=== PATIENT | male | born 2000 | race Caucasian/White ===

== ENCOUNTER → 2022-11-11 | Outpatient (CLI) | payer OTHER ==
--- NOTE | 2022-11-11 11:43 | XR ---
EXAMINATION TYPE: XR shoulder complete RT DATE OF EXAM: 11/11/2022 CLINICAL HISTORY: pain TECHNIQUE: Three views of the right shoulder are obtained. COMPARISON: None FINDINGS: There is no acute fracture/dislocation evident. The acromioclavicular and glenohumeral jaime int spaces appear within normal limits. The visualized ribs are intact and unremarkable. IMPRESSION: 1. There is no acute fracture or dislocation. ICD 10 NO FRACTURE, INITIAL EVALUATION
== END | disposition home or self-care (01) ==
LOC: RADXRMAIN 11:21
PROVIDERS: ATTEND Emergency Medicine
DX: S46.911A Strain of unspecified muscle, fascia and tendon at shoulder and upper arm level, right arm, initial encounter (principal); X58.XXXA Exposure to other specified factors, initial encounter

== ENCOUNTER 2022-12-22 12:04 | Emergency (ER) | payer BC ==
[2022-12-22 12:10] VITALS: RESP 18
[2022-12-22] MEDS ORDERED: HYDROmorphone 0.5 MG/0.5 ML SYRINGE IVP STA (12:41)
[2022-12-22] MEDS ORDERED: SODIUM CHLORIDE 0.9% 1,000 ML IV STA (12:41)
--- NOTE | 2022-12-22 12:44 | ED ---
General Adult HPI - General Chief complaint: Abdominal Pain Stated complaint: abd pain Time Seen by Provider: 12/22/22 12:10 Source: patient, EMS, RN notes reviewed, old records reviewed Mode of arrival: EMS - History of Present Illness Initial comments: Is a 22-year-old male presents emergency Department complaining of right upper quadrant abdominal pain since yesterday after helping his dad move a chair.. Patient states the pain gets progressively worse. Patient states any way he moves increases the pain. Patient states it appears That It's between the Ribs.. Patient also states taking a deep breath hurts. Patient denies any radiation of the pain. Patient denies any nausea vomiting or diarrhea. Patient denies any fever chills per patient denies any prior surgeries. Patient denies any chest pain difficult breathing shortness of breath. - Related Data Previous Rx's Medication Instructions Recorded Ketorolac [Toradol] 10 mg PO Q6HR #15 tab 12/22/22 Allergies Allergy/AdvReac Type Severity Reaction Status Date / Time amoxicillin [From Amoxil] Allergy Rash/Hives Verified 12/22/22 13:01 Penicillins Allergy Rash/Hives Verified 12/22/22 13:01 Review of Systems ROS Statement: Those systems with pertinent positive or pertinent negative responses have been documented in the HPI. ROS Other: All systems not noted in ROS Statement are negative. Past Medical History Past Medical History: Asthma History of Any Multi-Drug Resistant Organisms: None Reported Past Surgical History: Tonsillectomy Past Psychological History: No Psychological Hx Reported Smoking Status: Never smoker Past Alcohol Use History: Rare Past Drug Use History: None Reported General Exam - General Exam Comments Initial Comments: GENERAL: Patient is well-developed and well-nourished. Patient is nontoxic and well- hydrated and is in mild distress. ENT: Neck is soft and supple. No significant lymphadenopathy is noted. Oropharynx is clear. Moist mucous membranes. Neck has full range of motion without eliciting any pain. EYES: The sclera were anicteric and conjunctiva were pink and moist. Extraocular movements were intact and pupils were equal round and reactive to light. Eyelids were unremarkable. PULMONARY: Unlabored respirations. Good breath sounds bilaterally. No audible rales rhonchi or wheezing was noted. CARDIOVASCULAR: There is a regular rate and rhythm without any murmurs gallops or rubs. Patient is right lateral lower rib tenderness ABDOMEN: Mild right upper quadrant abdominal pain it appears that is causing pain in the ribs. SKIN: Skin is clear with no lesions or rashes and otherwise unremarkable. NEUROLOGIC: Patient is alert and oriented x3. Cranial nerves II through XII are grossly intact. Motor and sensory are also intact. Normal speech, volume and content. Symmetrical smile. MUSCULOSKELETAL: Normal extremities with adequate strength and full range of motion. LYMPHATICS: No significant lymphadenopathy is noted PSYCHIATRIC: Normal psychiatric evaluation. Course Vital Signs 12/22/22 12/22/22 12/22/22 12:06 13:00 14:00 Temperature 97.9 F Pulse Rate 97 86 90 Respiratory 18 18 18 Rate Blood Pressure 134/66 134/66 124/62 O2 Sat by Pulse 99 98 98 Oximetry Medical Decision Making - Medical Decision Making Was pt. sent in by a medical professional or institution (, PA, MILITARY ANALYST, urgent care, hospital, or fdc...) When possible be specific @ -No Did you speak to anyone other than the patient for history (EMS, parent, family, police, friend...)? What history was obtained from this source @ -No Did you review nursing and triage notes (agree or disagree)? Why? @ -I reviewed and agree with nursing and triage notes Were old charts reviewed (outside hosp., previous admission, EMS record, old EKG, old radiological studies, urgent care reports/EKG's, fdc records)? Report findings @ -No old charts were reviewed Differential Diagnosis (chest pain, altered mental status, abdominal pain women, abdominal pain men, vaginal bleeding, weakness, fever, dyspnea, syncope, headache, dizziness, GI bleed, back pain, seizure, CVA, palpatations, mental health, musculoskeletal)? @ -Differential Chest Pain: Stable Angina, Unstable Angina, STEMI, NSTEMI Aortic Dissection, Pneumothorax, Musculoskeletal, Esophageal Spasm GERD, Cholecystitis, Pancreatitis, Zoster, this is not meant to be an all-inclusive list. EKG interpreted by me (3pts min.). @ -As above X-rays interpreted by me (1pt min.). @ -Chest x-ray showed no acute abnormality CT interpreted by me (1pt min.). @ -None done U/S interpreted by me (1pt. min.). @ -Gallbladder ultrasound showed no acute abnormality What testing was considered but not performed or refused? (CT, X-rays, U/S, labs)? Why? @ -None What meds were considered but not given or refused? Why? @ -None Did you discuss the management of the patient with other professionals (professionals i.e. , PA, MILITARY ANALYST, lab, RT, psych nurse, social media intern, fine dining server, teacher, amphibious operations officer, case resolution specialist)? Give summary @ -No Was smoking cessation discussed for >3mins.? @ -No Was critical care preformed (if so, how long)? @ -No Were there social determinants of health that impacted care today? How? (Homelessness, low income, unemployed, alcoholism, drug addiction, transportation, low edu. Level, literacy, decrease access to med. care, nursing home, rehab)? @ -No Was there de-escalation of care discussed even if they declined (Discuss DNR or withdrawal of care, Hospice)? DNR status @ -No What co-morbidities impacted this encounter? (DM, HTN, Smoking, COPD, CAD, Cancer, CVA, ARF, Chemo, Hep., AIDS, mental health diagnosis, sleep apnea, morbid obesity)? @ -None Was patient admitted / discharged? Hospital course, mention meds given and route, prescriptions, significant lab abnormalities, going to OR and other pertinent info. @ -When I went back and reevaluate the patient his pain was much more over the ribs and not over the right upper quadrant. Patient states at that time that he was lifting chicken coop with his father yesterday when the pain started Undiagnosed new problem with uncertain prognosis? @ -No Drug Therapy requiring intensive monitoring for toxicity (Heparin, Nitro, Insulin, Cardizem)? @ -No Were any procedures done? @ -No Diagnosis/symptom? @ -Musculoskeletal chest pain Acute, or Chronic, or Acute on Chronic? @ -Acute Uncomplicated (without systemic symptoms) or Complicated (systemic symptoms)? @ -Uncomplicated Side effects of treatment? @ -No Exacerbation, Progression, or Severe Exacerbation? @ -No Poses a threat to life or bodily function? How? (Chest pain, [place], [place], pneumonia, PE, COPD, DKA, ARF, appy, cholecystitis, CVA, Diverticulitis, Homicidal, Suicidal, threat to staff... and all critical care pts) @ -No - Lab Data Result diagrams: 12/22/22 13:18 12/22/22 13:18 Lab Results 12/22/22 12/22/22 12/22/22 Range/Units 13:18 13:18 13:18 WBC 8.8 (3.8-10.6) k/uL RBC 4.85 (4.30-5.90) m/uL Hgb 14.2 (13.0-17.5) gm/dL Hct 42.0 (39.0-53.0) % MCV 86.7 (80.0-100.0) fL MCH 29.3 (25.0-35.0) pg MCHC 33.8 (31.0-37.0) g/dL RDW 13.2 (11.5-15.5) % Plt Count 199 (150-450) k/uL MPV 7.6 Neutrophils % 64 % Lymphocytes % 25 % Monocytes % 8 % Eosinophils % 1 % Basophils % 1 % Neutrophils # 5.7 (1.3-7.7) k/uL Lymphocytes # 2.2 (1.0-4.8) k/uL Monocytes # 0.7 (0-1.0) k/uL Eosinophils # 0.1 (0-0.7) k/uL Basophils # 0.0 (0-0.2) k/uL Sodium 138 (137-145) mmol/L Potassium 4.3 (3.5-5.1) mmol/L Chloride 104 (98-107) mmol/L Carbon Dioxide 26 (22-30) mmol/L Anion Gap 8 mmol/L BUN 15 (9-20) mg/dL Creatinine 1.19 (0.66-1.25) mg/dL Est GFR (CKD-EPI)AfAm >90 (>60 ml/min/1.73 sqM) Est GFR (CKD-EPI)NonAf 86 (>60 ml/min/1.73 sqM) Glucose 89 (74-99) mg/dL Plasma Lactic Acid John 1.4 (0.7-2.0) mmol/L Calcium 8.8 (8.4-10.2) mg/dL Total Bilirubin 0.5 (0.2-1.3) mg/dL AST 29 (17-59) U/L ALT 28 (4-49) U/L Alkaline Phosphatase 65 (38-126) U/L Total Protein 6.9 (6.3-8.2) g/dL Albumin 3.9 (3.5-5.0) g/dL Amylase 46 (30-110) U/L Lipase 64 (23-300) U/L Disposition Clinical Impression: Musculoskeletal chest pain Disposition: HOME SELF-CARE Condition: Good Instructions (If sedation given, give patient instructions): Musculoskeletal Pain (ED) Additional Instructions: Patient should return pain is worse or has any new symptoms. Prescriptions: Ketorolac [Toradol] 10 mg PO Q6HR #15 tab Is patient prescribed a controlled substance at d/c from ED?: No Referrals: Nonstaff,Physician [Primary Care Provider] - 1-2 days Time of Disposition: 15:02
[2022-12-22 13:31] LABS: Basophils % (A) 1 %; Eosinophils # (A) 0.1 k/uL (0-0.7); Eosinophils % (A) 1 %; HGB 14.2 gm/dL (13.0-17.5); Lymphocytes # (A) 2.2 k/uL (1.0-4.8); Lymphocytes % (A) 25 %; MCH 29.3 pg (25.0-35.0); MCHC 33.8 g/dL (31.0-37.0); MCV 86.7 fL (80.0-100.0); Mean Platelet Volume 7.6; Monocytes # (A) 0.7 k/uL (0-1.0); Monocytes % (A) 8 %; Neutrophils # (A) 5.7 k/uL (1.3-7.7); Neutrophils % (A) 64 %; Platelet Count 199 k/uL (150-450); RBC 4.85 m/uL (4.30-5.90); RDW 13.2 % (11.5-15.5); WBC 8.8 k/uL (3.8-10.6)
--- NOTE | 2022-12-22 13:40 | US ---
EXAMINATION TYPE: US gallbladder DATE OF EXAM: 12/22/2022 COMPARISON: NONE CLINICAL INDICATION: Male, 22 years old with history of Right upper quadrant abdominal tenderness; TECHNIQUE: Multiple sonographic images of the right upper quadrant are obtained. FINDINGS: EXAM MEASUREMENTS: Liver Length: 14.2 cm Gallbladder Wall: 0.3 cm CBD: 0.5 cm Right Kidney: 10.6 x 4.8 x 5.6 cm PATCHING MACHINE OPERATOR NOTES: Pancreas: Obscured by bowel gas Liver: wnl Gallbladder: No stones seen Evidence for sonographic Cook's sign: No CBD: wnl Right Kidney: No hydronephrosis or masses seen IMPRESSION: No evidence for acute process.
[2022-12-22 13:51] LABS: ALT 28 U/L (4-49); AST 29 U/L (17-59); African American GFR (CKD) >90 (>60 ml/min/1.73 sqM); Albumin 3.9 g/dL (3.5-5.0); Alkaline Phosphatase 65 U/L (38-126); Amylase 46 U/L (30-110); Anion Gap 8 mmol/L; Blood Urea Nitrogen 15 mg/dL (9-20); Calcium 8.8 mg/dL (8.4-10.2); Carbon Dioxide 26 mmol/L (22-30); Chloride 104 mmol/L (98-107); Glucose 89 mg/dL (74-99); Lipase 64 U/L (23-300); Non-African American GFR(CKD) 86 (>60 ml/min/1.73 sqM); Potassium 4.3 mmol/L (3.5-5.1); Sodium 138 mmol/L (137-145); Total Bilirubin 0.5 mg/dL (0.2-1.3); Total Protein 6.9 g/dL (6.3-8.2)
[2022-12-22] MEDS ORDERED: KETOROLAC 15 MG/ML 1 ML VIAL IVP STA (14:09)
--- NOTE | 2022-12-22 14:50 | XR ---
EXAMINATION TYPE: XR chest 2V DATE OF EXAM: 12/22/2022 COMPARISON: NONE HISTORY: Chest pain TECHNIQUE: Frontal and lateral views of the chest are obtained. FINDINGS: The degree of inspiration is limiting. No focal consolidation however there is evidence of bronchial wall thickening. No evidence for pneumothorax. No pleural effusion. The cardiac silhouette size is within normal limits. The osseous structures are grossly intact. IMPRESSION: 1. Bronchial wall thickening can be seen in patients with bronchitis and/or asthma. Correlate clinic ally.
[2022-12-22 15:21] VITALS: BP 125/56; PULSE 92; TEMP 98.2
== END 2022-12-22 15:22 | disposition home or self-care (01) ==
LOC: EC 12:04
DX: R07.89 Other chest pain (principal); J45.909 Unspecified asthma, uncomplicated; Z88.0 Allergy status to penicillin
CPT/HCPCS: 36415; 80053; 82150; 83605; 83690; 85025; 71046; 76705; 99285; 96374; 96375; 96361; J1885; J1170

== ENCOUNTER 2024-10-16 10:51 | Emergency (ER) | payer BC, OTHER ==
--- NOTE | 2024-10-16 12:00 | ED ---
General Adult HPI - General Chief complaint: Extremity Injury, Lower Stated complaint: L knee injury Time Seen by Provider: 10/16/24 11:02 Source: patient, RN notes reviewed Mode of arrival: ambulatory Limitations: no limitations - History of Present Illness Initial comments: 23-year-old male presents to the emergency department for evaluation of left k nee injury. Patient states that he was dancing on Wednesday when he twisted and injured his left knee. He went to urgent care at that time. He states that he did have x-rays performed and was provided a knee brace. He reports that he is unable to stand or work because of the injury. He has been taking Tylenol and Motrin for pain. He denies any other injury. - Related Data Previous Rx's Medication Instructions Recorded Ketorolac [Toradol] 10 mg PO Q6HR #15 tab 12/22/22 Lidocaine 5% Patch [Lidoderm 5% 1 patch TOPICAL DAILY #30 patch 10/16/24 Patch] Allergies Allergy/AdvReac Type Severity Reaction Status Date / Time amoxicillin [From Amoxil] Allergy Rash/Hives Verified 10/16/24 10:54 Penicillins Allergy Rash/Hives Verified 10/16/24 10:54 Review of Systems ROS Statement: Those systems with pertinent positive or pertinent negative responses have been documented in the HPI. ROS Other: All systems not noted in ROS Statement are negative. Past Medical History Past Medical History: Asthma History of Any Multi-Drug Resistant Organisms: None Reported Past Surgical History: Tonsillectomy Past Psychological History: No Psychological Hx Reported Smoking Status: Never smoker Past Alcohol Use History: Rare Past Drug Use History: None Reported General Exam Limitations: no limitations General appearance: alert, in no apparent distress Head exam: Present: atraumatic, normocephalic, normal inspection Eye exam: Present: normal appearance, PERRL, EOMI. Absent: scleral icterus, conjunctival injection, periorbital swelling ENT exam: Present: normal exam, mucous membranes moist Neck exam: Present: normal inspection. Absent: tenderness, meningismus, lymphadenopathy Respiratory exam: Present: normal lung sounds bilaterally. Absent: respiratory distress, wheezes, rales, rhonchi, stridor Cardiovascular Exam: Present: regular rate, normal rhythm, normal heart sounds. Absent: systolic murmur, diastolic murmur, rubs, gallop, clicks Extremities exam: Present: tenderness, normal capillary refill, other (DP and PT pulses 2+, decreased range of motion of the left knee, significant edema to the anterior left knee). Absent: full ROM Neurological exam: Present: alert, oriented X3 Psychiatric exam: Present: normal affect, normal mood Skin exam: Present: warm, dry, intact, normal color. Absent: rash Course Vital Signs 10/16/24 10:51 Temperature 97.4 F L Pulse Rate 103 H Respiratory 18 Rate Blood Pressure 145/83 O2 Sat by Pulse 98 Oximetry Medical Decision Making - Medical Decision Making Was pt. sent in by a medical professional or institution (, PA, SUPPLIER SPECIALIST, urgent care, hospital, or alf...) When possible be specific @ -[No] Did you speak to anyone other than the patient for history (EMS, parent, family, police, friend...)? What history was obtained from this source @ -[No] Did you review nursing and triage notes (agree or disagree)? Why? @ -[I reviewed and agree with nursing and triage notes] Were old charts reviewed (outside hosp., previous admission, EMS record, old EKG, old radiological studies, urgent care reports/EKG's, alf records)? Report findings @ -[No old charts were reviewed] Differential Diagnosis (chest pain, altered mental status, abdominal pain women, abdominal pain men, vaginal bleeding, weakness, fever, dyspnea, syncope, headache, dizziness, GI bleed, back pain, seizure, CVA, palpatations, mental health, musculoskeletal)? @ -Differential Musculoskeletal Muscular strain, contusion, ligament sprain, fracture, arthritis, septic arthritis, bursitis, cellulitis, muscle spasm, nerve compression, DVT, arterial occlusion, herpes zoster, electrolyte abnormality, tumor.... This is not meant to be in all inclusive list EKG interpreted by me (3pts min.). @ -None X-rays interpreted by me (1pt min.). @ -X-ray of the left knee reveals CT interpreted by me (1pt min.). @ -[None done] U/S interpreted by me (1pt. min.). @ -[None done] What testing was considered but not performed or refused? (CT, X-rays, U/S, labs)? Why? @ -[None] What meds were considered but not given or refused? Why? @ -[None] Did you discuss the management of the patient with other professionals (professionals i.e. , PA, SUPPLIER SPECIALIST, lab, RT, psych nurse, hospice social worker, adjunct nursing faculty, teacher, administrative services officer, disease case manager)? Give summary @ -[No] Was smoking cessation discussed for >3mins.? @ -[No] Was critical care preformed (if so, how long)? @ -[No] Were there social determinants of health that impacted care today? How? (Homelessness, low income, unemployed, alcoholism, drug addiction, transportation, low edu. Level, literacy, decrease access to med. care, penitentiary, re hab)? @ -[No] Was there de-escalation of care discussed even if they declined (Discuss DNR or withdrawal of care, Hospice)? DNR status @ -[No] What co-morbidities impacted this encounter? (DM, HTN, Smoking, COPD, CAD, Cancer, CVA, ARF, Chemo, Hep., AIDS, mental health diagnosis, sleep apnea, morbid obesity)? @ -[None] Was patient admitted / discharged? Hospital course, mention meds given and ro kasaan, prescriptions, significant lab abnormalities, going to OR and other pertinent info. @ -[hospital course] Undiagnosed new problem with uncertain prognosis? @ -[No] Drug Therapy requiring intensive monitoring for toxicity (Heparin, Nitro, Insulin, Cardizem)? @ -[No] Were any procedures done? @ -[No] Diagnosis/symptom? @ -[default] Acute, or Chronic, or Acute on Chronic? @ -[default] Uncomplicated (without systemic symptoms) or Complicated (systemic symptoms)? @ -[default] Side effects of treatment? @ -[No] Exacerbation, Progression, or Severe Exacerbation? @ -[No] Poses a threat to life or bodily function? How? (Chest pain, [place], [place], pneumonia, PE, COPD, DKA, ARF, appy, cholecystitis, CVA, Diverticulitis, Homicidal, Suicidal, threat to staff... and all critical care pts) @ -[No] Disposition Clinical Impression: Left knee sprain Disposition: HOME SELF-CARE Condition: Stable Instructions (If sedation given, give patient instructions): Knee Sprain (ED) Additional Instructions: Please follow-up with orthopedics for clearance to return to work. The orthopedic provider information is on your discharge paperwork. Please give them a call when you leave the emergency department to set up an appointment. Utilize the knee brace that you have along with your crutches. You can also take acetaminophen and ibuprofen alternating for discomfort. Rest, ice, elevate the knee. Return to the emergency department for new or worsening symptoms. Is patient prescribed a controlled substance at d/c from ED?: No Referrals: None,Stated [Primary Care Provider] - 1-2 days Liya Bunch [Doctor of Osteopathic Medicine] - 1-2 days
[2024-10-16] MEDS: KETOROLAC 15 MG/ML 1 ML VIAL IM STA (12:17)
[2024-10-16] MEDS: LIDOCAINE 4% PATCH TOPICAL ONE (12:18)
--- NOTE | 2024-10-16 12:59 | XR ---
EXAMINATION TYPE: XR knee 4V LT DATE OF EXAM: 10/16/2024 12:41 PM COMPARISON: None CLINICAL INDICATION: Male, 23 years old with history of twisting injury; PH[facility], pain TECHNIQUE: 4 views FINDINGS: Marked large joint effusion. No acute fracture or dislocation. However, there is lateral patellar til t and slight lateral patellar translation. IMPRESSION: 1. Moderate to large knee joint effusion and slight lateral patellar translation. Consider sequela of a transient lateral patellar dislocation and relocation. Consider MRI to assess for ligamentous and cartilage injury. 2. Otherwise, no acute osseous abnormality seen. [facility], Workstation: [facility], 10/16/2024 12:57 PM
[2024-10-16 14:00] VITALS: BP 136/80; PULSE 96; RESP 20; TEMP 98
== END 2024-10-16 14:00 | disposition home or self-care (01) ==
LOC: EC 10:51
DX: S83.92XA Sprain of unspecified site of left knee, initial encounter (principal); Z88.0 Allergy status to penicillin; X58.XXXA Exposure to other specified factors, initial encounter
CPT/HCPCS: 73564; 99283; 96372; J1885